=== PATIENT | female | born 2000 ===

== ENCOUNTER 2019-08-05 09:09 | Emergency (ER) | payer OTHER ==
[~2019-08-05] VITALS: Ht 154.9 cm; Wt 71.2 kg
[2019-08-05 11:17] LABS: BASOPHILS ABSOLUTE AUTO 0.11 K/mm3 (0.00-0.23); BASOPHILS PERCENT AUTO 1 % (0-2); EOSINOPHILS PERCENT AUTO 16 % (0-6); Hematocrit 49.4 % (33.0-51.0); Hemoglobin 16.6 g/dL (11.5-16.0); IMMATURE GRAN ABSOLUTE AUTO 0.09 K/mm3 (0.00-0.10); IMMATURE GRAN PERCENT AUTO 1 % (0-1); LYMPHOCYTES ABSOLUTE AUTO 2.33 K/mm3 (0.84-5.20); LYMPHOCYTES PERCENT AUTO 20 % (21-46); MONOCYTES ABSOLUTE AUTO 0.84 K/mm3 (0.16-1.47); MONOCYTES PERCENT AUTO 7 % (4-13); Mean Corpuscular HGB 28.9 pg (26.0-34.0); Mean Corpuscular HGB Conc 33.6 g/dL (31.5-36.5); Mean Corpuscular Volume 86 fL (80-100); Mean Platelet Volume 11.7 fL (9.1-12.4); NEUTROPHILS ABSOLUTE AUTO 6.62 K/mm3 (1.96-9.15); NEUTROPHILS PERCENT AUTO 56 % (41-73); Platelet Count 247 K/mm3 (150-400); RDW Coefficient Variation 16.5 % (11.7-14.2); RDW Standard Deviation 50.4 fL (35.1-46.3); Red Blood Cell Count 5.74 M/mm3 (3.80-5.20); White Blood Cell Count 11.89 K/mm3 (4.00-11.30)
[2019-08-05 11:35] LABS: Alanine Aminotransfer (ALT/SGP 19 U/L (12-78); Albumin, Blood 3.9 g/dL (3.4-5.0); Alk Phos 222 U/L (50-136); Anion Gap 16 mmol/L (6-16); Aspartate Aminotrans (AST/SGOT 22 U/L (12-37); Bilirubin, Total 0.5 mg/dL (0.1-1.0); Blood Urea Nitrogen 7 mg/dL (8-24); Bun/Creatinine Ratio 15.4 (12.0-20.0); CO2, Blood 11 mmol/L (21-32); Calcium, Blood 8.6 mg/dL (8.5-10.1); Chloride, Blood 106 mmol/L (98-108); Creatinine, Blood 0.46 mg/dL (0.40-1.00); Globulin, Blood 4.1 g/dL (2.2-4.0); Glomerular Filtration Rate >60 (60-); Glucose, Blood 422 mg/dL (70-99); Potassium, Blood 4.1 mmol/L (3.5-5.5); Sodium, Blood 133 mmol/L (136-145)
[2019-08-05 11:44] LABS: Source, Urine Clean Catch
[2019-08-05 12:05] LABS: Leukocyte Esterase, Urine 2+ (Neg); Nitrite, Urine Neg (Neg); Protein, Urine 1+ (Neg); Specific Gravity, Urine 1.025 (1.003-1.022)
[2019-08-05 12:06] LABS: Appearance, Urine Hazy (Clear); Bilirubin, Urine Neg (Neg); Blood, Urine 2+ (Neg); Color, Urine Pale Yellow (P-Yellow); Glucose Qualitative, Urine 4+ (Neg); Ketones, Urine 4+ (Neg); Urobilinogen, Urine NORM (Normal)
[2019-08-05 12:13] LABS: Bacteria Many /hpf; Squamous Epithelial Cells Mod /hpf (Few); White Blood Cells, Urine 50-100 /hpf (0-5); Yeast/Fungi Urine Few /hpf
[2019-08-05] MEDS ORDERED: Bactrim Ds Tab1 EACH PO (12:32)
== END 2019-08-05 12:44 | disposition home or self-care (01) ==
LOC: ER 09:09
PROVIDERS: Emergency Medicine
DX: J06.9 Acute upper respiratory infection, unspecified (principal); N39.0 Urinary tract infection, site not specified
CPT/HCPCS: 80053; 81001; 81025; 83690; 85025; 87081; 87086; 87147; 87430; 99283; A9270-GY

== ENCOUNTER 2019-08-20 20:32 | Inpatient (IN) | payer OTHER ==
[~2019-08-20] VITALS: Ht 154.9 cm; Wt 69.3 kg
[~2019-08-20 20:32] MED LIST: Bactrim Ds Tab1 EACH PO; IBUP800 PO; Monodox100 MG PO
[2019-08-20 21:06] LABS: BASOPHILS ABSOLUTE AUTO 0.28 K/mm3 (0.00-0.23); BASOPHILS PERCENT AUTO 1 % (0-2); EOSINOPHILS ABSOLUTE AUTO 0.03 K/mm3 (0.00-0.68); EOSINOPHILS PERCENT AUTO 0 % (0-6); Hematocrit 51.1 % (33.0-51.0); Hemoglobin 16.1 g/dL (11.5-16.0); IMMATURE GRAN ABSOLUTE AUTO 0.97 K/mm3 (0.00-0.10); IMMATURE GRAN PERCENT AUTO 4 % (0-1); LYMPHOCYTES ABSOLUTE AUTO 2.46 K/mm3 (0.84-5.20); LYMPHOCYTES PERCENT AUTO 11 % (21-46); MONOCYTES ABSOLUTE AUTO 1.51 K/mm3 (0.16-1.47); MONOCYTES PERCENT AUTO 7 % (4-13); Mean Corpuscular HGB 29.1 pg (26.0-34.0); Mean Corpuscular HGB Conc 31.5 g/dL (31.5-36.5); Mean Corpuscular Volume 92 fL (80-100); Mean Platelet Volume 11.4 fL (9.1-12.4); NEUTROPHILS ABSOLUTE AUTO 17.62 K/mm3 (1.96-9.15); NEUTROPHILS PERCENT AUTO 77 % (41-73); Platelet Count 448 K/mm3 (150-400); RDW Coefficient Variation 16.6 % (11.7-14.2); RDW Standard Deviation 55.4 fL (35.1-46.3); Red Blood Cell Count 5.54 M/mm3 (3.80-5.20); White Blood Cell Count 22.87 K/mm3 (4.00-11.30)
[2019-08-20 21:37] LABS: Alanine Aminotransfer (ALT/SGP 14 U/L (12-78); Albumin, Blood 3.4 g/dL (3.4-5.0); Albumin/Globulin Ratio 0.6 (0.8-1.8); Alk Phos 291 U/L (50-136); Anion Gap 22 mmol/L (6-16); Aspartate Aminotrans (AST/SGOT 4 U/L (12-37); Bilirubin, Total 0.3 mg/dL (0.1-1.0); Blood Urea Nitrogen 10 mg/dL (8-24); Bun/Creatinine Ratio 14.1 (12.0-20.0); CO2, Blood 6 mmol/L (21-32); Calcium, Blood 8.9 mg/dL (8.5-10.1); Chloride, Blood 103 mmol/L (98-108); Creatinine, Blood 0.71 mg/dL (0.40-1.00); Globulin, Blood 5.3 g/dL (2.2-4.0); Glomerular Filtration Rate >60 (60-); Glucose, Blood 508 mg/dL (70-99); Potassium, Blood 3.3 mmol/L (3.5-5.5); Sodium, Blood 131 mmol/L (136-145); Total Protein, Blood 8.7 g/dL (6.4-8.2)
[2019-08-20 23:08] LABS: Glucose, Blood 529 mg/dL (70-99)
[2019-08-20 23:09] LABS: Magnesium, Blood 2.5 mg/dL (1.6-2.4)
[2019-08-20 23:38] LABS: Beta-hydroxybutyrate 104.7 mg/dL (0.2-2.8)
[2019-08-20 23:40] LABS: Source, Urine Clean Catch
[2019-08-20 23:43] LABS: Bilirubin, Urine Neg (Neg); Blood, Urine 5+ (Neg); Glucose Qualitative, Urine 4+ (Neg); Ketones, Urine 4+ (Neg); Leukocyte Esterase, Urine 1+ (Neg); Nitrite, Urine Neg (Neg); Protein, Urine 2+ (Neg); Specific Gravity, Urine 1.025 (1.003-1.022); Urobilinogen, Urine NORM (Normal)
[2019-08-20 23:45] LABS: Appearance, Urine Hazy (Clear); Color, Urine Yellow (P-Yellow)
[2019-08-20 23:49] LABS: Bacteria Mod /hpf; Red Blood Cells, Urine TNTC /hpf (0-2); Squamous Epithelial Cells Few /hpf (Few)
[2019-08-21 00:15] LABS: PCO2 Venous 19.7 mmHg (38-42); PO2 Venous 115 mmHg (38-42); pH Blood Venous <6.80 (7.34-7.37)
[2019-08-21 00:16] LABS: Base Excess Venous -31.5 mmol/L; Bicarbonate Venous 5.7 mmol/L (24.0-30.0)
--- NOTE | 2019-08-21 01:30 | NUR ---
PATIENT ARRIVED TO ICU 15 VIA GURNEY FROM ED. PATIENT AWAKE, ANSWERING QUESTIONS APPROPRIATELY. FEELING GENERALIZED WEAKNESS, NO C/O NAUSEA AT THIS TIME. INSULIN DRIP INFUSING AT 5 UNITS/HR. 1/2NS WITH 20KCL AND BICARB STARTED AT 200/HR. RESP LABORED AT TIMES, NO C/O FEELING SOB, BIOX >95% ON RA. UP TO BSC VOIDING HAZY YELLOW URINE AND MENSTRUATING. LABIA SWOLLEN AND PAINFUL WITH CLEANING. DICK-PAD IN PLACE.
[2019-08-21 02:50] LABS: Anion Gap 22 mmol/L (6-16); Blood Urea Nitrogen 9 mg/dL (8-24); CO2, Blood 5 mmol/L (21-32); Calcium, Blood 7.8 mg/dL (8.5-10.1); Chloride, Blood 115 mmol/L (98-108); Glomerular Filtration Rate >60 (60-); Glucose, Blood 341 mg/dL (70-99); Potassium, Blood 2.8 mmol/L (3.5-5.5)
[2019-08-21 03:11] LABS: Sodium, Blood 142 mmol/L (136-145)
--- NOTE | 2019-08-21 03:30 | NUR ---
DOCTOR SOHAIL NOTIFIED OF REPEAT CHEM RESULTS AND IV FLUIDS CLARIFIED. PLAN TO REPEAT VBG AND CHEM AT 0500.
[2019-08-21 05:13] LABS: Base Excess Venous -25.5 mmol/L; Bicarbonate Venous 8.4 mmol/L (24.0-30.0); PCO2 Venous 22.6 mmHg (38-42); PO2 Venous 48.5 mmHg (38-42); pH Blood Venous 7.01 (7.34-7.37)
[2019-08-21 05:42] LABS: Blood Urea Nitrogen 9 mg/dL (8-24); Bun/Creatinine Ratio 15.3 (12.0-20.0); Calcium, Blood 7.8 mg/dL (8.5-10.1); Chloride, Blood 116 mmol/L (98-108); Creatinine, Blood 0.59 mg/dL (0.40-1.00); Glomerular Filtration Rate >60 (60-); Glucose, Blood 211 mg/dL (70-99); Potassium, Blood 2.7 mmol/L (3.5-5.5); Sodium, Blood 143 mmol/L (136-145)
[2019-08-21 05:44] LABS: Alanine Aminotransfer (ALT/SGP 14 U/L (12-78); Albumin, Blood 2.9 g/dL (3.4-5.0); Albumin/Globulin Ratio 0.7 (0.8-1.8); Alk Phos 226 U/L (50-136); Anion Gap 20 mmol/L (6-16); Aspartate Aminotrans (AST/SGOT 12 U/L (12-37); Bilirubin, Direct <0.1 mg/dL (0.0-0.3); Bilirubin, Indirect Unable to Calculate mg/dL (0.1-0.7); Bilirubin, Total 0.4 mg/dL (0.1-1.0); CO2, Blood 7 mmol/L (21-32); Globulin, Blood 4.2 g/dL (2.2-4.0); Total Protein, Blood 7.1 g/dL (6.4-8.2)
--- NOTE | 2019-08-21 06:14 | NUR ---
DOCTOR SOHAIL NOTIFIED OF AM LABS, POTASSIUM PO AND KPHOS ORDERED NO CHANGE TO IV FLUIDS AT THIS TIME, PLAN TO RECHECK LABS IN APROX 3 HRS
--- NOTE | 2019-08-21 06:43 | NUR ---
SUMMARY PATIENT SLEEPING WHEN UNDISTURBED, AWAKENS TO SLIGHT STIMULI. VERBALIZED THAT SHE IS STARTING TO FEEL BETTER. UP TO BS WITH MIN ASSISTANCE TO URINATE, CONTINUES TO HAVE LIGHT BLEEDING FROM MENSTRUAL CYCLE. INSULIN DRIP CONTINUES TITRATED FOR GLUCOSE AND DKA. CONTINUING TO MONITOR LABS CLOSELY REPLACING POTASSIUM AND PHOS THIS MORNING.
--- NOTE | 2019-08-21 07:15 | NUR ---
CALL PLACED TO DR MATHIS Notified provider of current blood sugar. Notified provider of current ordered IV fluids. Notified of most recent BMP. Orders given to change IV fluids and give IV KCl.
--- NOTE | 2019-08-21 07:15 | NUR ---
INITIAL ASSESSMENT Assumed care of pt at 0700. Bedside report recieved from Shayy CARRION. Pt A&O x 4. Answers questions. Follows commands. Verbalizes needs. States she is feeling tired. Pt on room air. Lungs clear t/o. SpO2 92% or greater. SR per monitor. BP stable. Bed in lowest position. Call light in reach. Pt denies need at this time.
--- NOTE | 2019-08-21 08:02 | NUR ---
DR MATHIS IN TO SEE PT Provider notifed that KCl cannot be given until KPhos is complete. Provider states to stop KPHos and run KCl first. Additionally, give 40 meq of KCl orally now. Plans to recheck BMP at 0930.
--- NOTE | 2019-08-21 08:04 | NUR ---
SPOKE TO GOVERNMENT TEACHER Provider Akanksha called unit for update on pt. States plan to visit pt around lunch time.
--- NOTE | 2019-08-21 09:30 | NUR ---
LABIAL ASSESSMENT Assessment done with Dr Mancera and Dr Gandhi. Pt gave verbal consent to assessment. Site is firm to the touch, with jelly nelson- sized lesion on left labia. Pain out of proportion. Pt provided with clean peripad at end of assessment. Offered clean wipes for anastasia area clean up, pt declined.
[2019-08-21 10:15] LABS: Blood Urea Nitrogen 8 mg/dL (8-24); Bun/Creatinine Ratio 12.9 (12.0-20.0); Calcium, Blood 7.5 mg/dL (8.5-10.1); Chloride, Blood 115 mmol/L (98-108); Creatinine, Blood 0.62 mg/dL (0.40-1.00); Glomerular Filtration Rate >60 (60-); Glucose, Blood 202 mg/dL (70-99); Potassium, Blood 3.2 mmol/L (3.5-5.5); Sodium, Blood 140 mmol/L (136-145)
[2019-08-21 10:17] LABS: Anion Gap 16 mmol/L (6-16); CO2, Blood 9 mmol/L (21-32)
--- NOTE | 2019-08-21 12:30 | NUR ---
DR GIL IN TO SEE PT Abscess swabbed. Provider states she would like antibiotics changed. Dr Gil connected to Dr Mancera. New orders received. Dr Gil recommends cleanse anastasia area with chlorhexidine BID and apply fresh warm compress every hour during the day and every 2-4 hours during the night. States she would like wound left open to air.
[2019-08-21 14:11] LABS: Anion Gap 15 mmol/L (6-16); Blood Urea Nitrogen 8 mg/dL (8-24); Bun/Creatinine Ratio 11.8 (12.0-20.0); CO2, Blood 10 mmol/L (21-32); Calcium, Blood 7.8 mg/dL (8.5-10.1); Chloride, Blood 117 mmol/L (98-108); Creatinine, Blood 0.68 mg/dL (0.40-1.00); Glomerular Filtration Rate >60 (60-); Glucose, Blood 211 mg/dL (70-99); Potassium, Blood 2.8 mmol/L (3.5-5.5); Sodium, Blood 142 mmol/L (136-145)
--- NOTE | 2019-08-21 15:00 | NUR ---
CALL PLACED TO DR RADFORD Notified provider of potassium levels. Provider to enter orders.
--- NOTE | 2019-08-21 16:00 | NUR ---
CALL PLACED TO DR RADFORD Notified provider that pt vomited immediately after receiving PO potassium. Provider to enter orders.
--- NOTE | 2019-08-21 17:00 | NUR ---
CALL PLACED TO DR MATHIS Notified provider of increased rate of insulin drip. Notified provider that pt is still receiving KPhos from this morning. Provider states to discontinue KPhos all togtheter and just give KCl.
--- NOTE | 2019-08-21 17:17 | NUR ---
SUMMARY At this time, pt on 8 units/hr insulin. Pt has been lethargic for majority of shift. OOB once to use bedside commode. Pt assisted with bath. Offered hair brush and oral care supplies, pt refused. SR per monitor. BP stable. Report given to Meron CARRION.
[2019-08-21 17:22] LABS: Anion Gap 11 mmol/L (6-16); Blood Urea Nitrogen 7 mg/dL (8-24); Bun/Creatinine Ratio 11.3 (12.0-20.0); CO2, Blood 11 mmol/L (21-32); Calcium, Blood 7.6 mg/dL (8.5-10.1); Chloride, Blood 114 mmol/L (98-108); Creatinine, Blood 0.62 mg/dL (0.40-1.00); Glomerular Filtration Rate >60 (60-); Glucose, Blood 224 mg/dL (70-99); Potassium, Blood 2.9 mmol/L (3.5-5.5); Sodium, Blood 136 mmol/L (136-145)
--- NOTE | 2019-08-21 18:44 | NUR ---
SHIFT SUMMARY: REPORT RECIEVED FROM SHEYLA POTTER. PT RESTING IN BED, VERY LETHARGIC AND NOT VERY RESPONSIVE TO STAFF. PULLS AWAY WITH NOXIOUS STIMULI. FLUID BOLUS ADMINISTERING PER DR MATHIS. NO FURTHER NEEDS AT THIS TIME.
--- NOTE | 2019-08-21 19:00 | NUR ---
ASSUMED CARE NOTE: ASSUMED CARE OF PT AT 1900, RECEVIED REPORT FROM MINGO CARRION. PT IS ALERT, ORIENTED TO SELF, AND IS ABLE TO FOLLOW DIRECTIONS. PT IS UNABLE TO REMEMBER WHY SHE IS HERE IN THE HOSPITAL. PT IS ON RA WITH SPO2 AT 100% PT IS IN SR WITH HR IN THE 90'S. HR RISES TO 116-120 WITH ACTIVITY. PT DENIES ANY SOB/PAIN/NAUSEA AT THIS TIME. ABDOMEN SOFT AND NON-TENDER, ACTIVE BT HEARD IN ALL QUADRANTS. PT HAD A INCONTINENT EPISIODE OF URINE. PT GIVEN A PARTIAL BEDBATH AND LINENS WERE CHANGED. PT UP TO THE BSC WITH SBA, PT STEADY ON FEET. INSLUIN RUNNING @ 8U/HR. BED AT LOWEST LEVEL, BED ALARM ON, CALL LIGHT WITHIN REACH.
--- NOTE | 2019-08-21 19:41 | NUR ---
WOUND CARE: CALLED PHARMACY REGARDING CHLORHEXIDINE WASH THAT IS TO BE USED ON PT'S DICK AREA. WASH SENT FROM PHARMACY STATES TO NOT USE ON GENITAL AREA, VERFIED WITH PHARMACY WILL SEARCH FOR NEW WASH. MEANWHILE , DICK AREA WAS CLEANED WITH SOAP AND WATER, AND WARM COMPRESS APPLIED.
--- NOTE | 2019-08-21 20:47 | NUR ---
UPDATE: PT IS MORE ORIENTED, ABLE TO RECALL RECENT AND REMOTE EVENTS. ABLE TO ANSWER QUESTIONS APPROPRIATLY.
[2019-08-21 21:11] LABS: Anion Gap 12 mmol/L (6-16); Blood Urea Nitrogen 5 mg/dL (8-24); Bun/Creatinine Ratio 7.6 (12.0-20.0); CO2, Blood 14 mmol/L (21-32); Calcium, Blood 7.7 mg/dL (8.5-10.1); Chloride, Blood 115 mmol/L (98-108); Creatinine, Blood 0.66 mg/dL (0.40-1.00); Glomerular Filtration Rate >60 (60-); Glucose, Blood 186 mg/dL (70-99); Potassium, Blood 2.5 mmol/L (3.5-5.5); Sodium, Blood 141 mmol/L (136-145)
--- NOTE | 2019-08-21 23:46 | NUR ---
UPDATE: CALLED AND ORDERED 20MEQ IV POTASSIUM AND 40MEQ KCL ONCE ORALLY NOW. WILL CONTINUE TO MONITOR PT.
[2019-08-22 01:31] LABS: Anion Gap 9 mmol/L (6-16); Blood Urea Nitrogen 5 mg/dL (8-24); Bun/Creatinine Ratio 8.1 (12.0-20.0); CO2, Blood 16 mmol/L (21-32); Chloride, Blood 115 mmol/L (98-108); Creatinine, Blood 0.62 mg/dL (0.40-1.00); Glomerular Filtration Rate >60 (60-); Glucose, Blood 105 mg/dL (70-99); Potassium, Blood 2.5 mmol/L (3.5-5.5); Sodium, Blood 140 mmol/L (136-145)
--- NOTE | 2019-08-22 05:23 | NUR ---
SHIFT SUMMARY: PT'S POTASSIUM CONTINUES TO BE LOW, PHYSICAN AWARE. PT IS CURRENTLY RECEVING POTASSIUM REPLACEMENT. PT IS MORE AWAKE THIS SHIFT, STATES SHE IS FEELS BETTER, HOWEVER C/O WEAKNESS. PT CONTINUES TO BE IN SR WITH HR IN THE 80'S AND ON RA. PT HAS DENIED PAIN/SOB/NAUSEA THIS SHIFT. PT IS MENSTRUATING, THEREFORE REQUIRES FREQUENT DICK CARE. DRY FLOW PADS ARE BEING USED, INSTEAD OF ATTENDS TO PREVENT FURTHER IRRITATION TO LABIA ABCESS. WARM COMPRESSESS ARE BEING USED TO DICK AREA Q2H. PT ATTEMPTED TO DECLINE DICK CARE, HOWEVER, AGREED WHEN PATIENT EDUCATION WAS GIVEN. PT PROVIDED WITH ORAL CARE. WILL GIVE IN REPORT THAT IN-HOUSE CHLORHEXIDINE FOR GENITAL AREA COULD NOT BE FOUND. PT HAS BEEN USING BEDSIDE COMMODE, HOWEVER CAN BE INCONTINENT AT TIMES. INSULIN CURRENTLY RUNNING AT 8U/HR. WILL CONTINUE TO MONITOR PT T/O SHIFT.
[2019-08-22 05:46] LABS: BASOPHILS ABSOLUTE AUTO 0.09 K/mm3 (0.00-0.23); BASOPHILS PERCENT AUTO 1 % (0-2); EOSINOPHILS ABSOLUTE AUTO 0.23 K/mm3 (0.00-0.68); EOSINOPHILS PERCENT AUTO 2 % (0-6); IMMATURE GRAN ABSOLUTE AUTO 0.14 K/mm3 (0.00-0.10); IMMATURE GRAN PERCENT AUTO 1 % (0-1); LYMPHOCYTES ABSOLUTE AUTO 1.63 K/mm3 (0.84-5.20); LYMPHOCYTES PERCENT AUTO 17 % (21-46); MONOCYTES ABSOLUTE AUTO 1.13 K/mm3 (0.16-1.47); MONOCYTES PERCENT AUTO 12 % (4-13); Mean Corpuscular HGB 28.9 pg (26.0-34.0); Mean Corpuscular HGB Conc 34.2 g/dL (31.5-36.5); Mean Platelet Volume 10.9 fL (9.1-12.4); NEUTROPHILS ABSOLUTE AUTO 6.58 K/mm3 (1.96-9.15); NEUTROPHILS PERCENT AUTO 67 % (41-73); Platelet Count 237 K/mm3 (150-400); RDW Coefficient Variation 16.8 % (11.7-14.2); RDW Standard Deviation 51.2 fL (35.1-46.3)
[2019-08-22 05:47] LABS: Mean Corpuscular Volume 84 fL (80-100)
[2019-08-22 06:03] LABS: Anion Gap 9 mmol/L (6-16); Blood Urea Nitrogen 4 mg/dL (8-24); CO2, Blood 17 mmol/L (21-32); Calcium, Blood 8.4 mg/dL (8.5-10.1); Chloride, Blood 117 mmol/L (98-108); Creatinine, Blood 0.67 mg/dL (0.40-1.00); Glomerular Filtration Rate >60 (60-); Glucose, Blood 148 mg/dL (70-99); Potassium, Blood 2.8 mmol/L (3.5-5.5); Sodium, Blood 143 mmol/L (136-145)
--- NOTE | 2019-08-22 06:34 | NUR ---
UPDATE: CALLED REGARDING 2.8 POTASSIUM, ORDERS TO GIVE 40MEQ PO GIVEN .
--- NOTE | 2019-08-22 08:30 | NUR ---
ASSESSMENT- PT AWAKENS TO NAME, ALERT, ORIENTED, COOPERATIVE. DENIES PAIN AT REST BUT VERY PAINFUL WITH ANY MOVEMENT. ASSISTED UP TO BEDSIDE COMMODE. VULVA AREA SWOLLEN, RED, VERY PAINFUL WITH ANY MOVEMENT OR TOUCH, WILL ONLY TOLERATE LIGHT TOUCH TO CLEAN. STATES DOES FEEL BETTER THAN YESTERDAY. ON MENSES. DR. RADFORD HERE-UPDATED, ASSESSED PT. LUNGS CLEAR, NO SOB. VSS. AFEBRILE. INSULIN GTT CONTINUES AT 6 UNITS/HR, BLOOD SUGAR STABLE. IV D5 1/2 NS WITH 20 MEQ KCL AT 200 CC/HR. PIV X 3 INTACT. POTASSIUM REPLACEMENT COMPLETED VOIDING CHRIS URINE.
--- NOTE | 2019-08-22 09:05 | NUR ---
PHYSICIAN DR. CLEVELAND CALLED-UPDATED WITH VS, LABS, PLAN OF CARE. PT RX WTIH PAIN MEDICATION. POTASSIUM REPLACEMENT STARTED
[2019-08-22 09:49] LABS: Alanine Aminotransfer (ALT/SGP 13 U/L (12-78); Albumin, Blood 2.4 g/dL (3.4-5.0); Albumin/Globulin Ratio 0.7 (0.8-1.8); Alk Phos 169 U/L (50-136); Anion Gap 8 mmol/L (6-16); Aspartate Aminotrans (AST/SGOT 12 U/L (12-37); Bilirubin, Total 0.2 mg/dL (0.1-1.0); Blood Urea Nitrogen 3 mg/dL (8-24); CO2, Blood 17 mmol/L (21-32); Calcium, Blood 8.3 mg/dL (8.5-10.1); Chloride, Blood 119 mmol/L (98-108); Globulin, Blood 3.5 g/dL (2.2-4.0); Glomerular Filtration Rate >60 (60-); Glucose, Blood 177 mg/dL (70-99); Sodium, Blood 144 mmol/L (136-145); Total Protein, Blood 5.9 g/dL (6.4-8.2)
--- NOTE | 2019-08-22 10:53 | NUR ---
PT ASSISTED UP TO TOILET. CHLORHEXIDINE WASH VIA DICK BOTTLE, WARM RINSE TO DICK AREA. TOLERATED BETTER THAN THIS AM. RX WITH TYLENOL. WARM COMPRESS TO DICK AREA.
--- NOTE | 2019-08-22 11:08 | NUR ---
RN FROM [facility] CALLED-OKAYED FROM PT TO TALK WITH HER. UPDATE GIVEN. PLANS FOR PT TO MEDICALLY SEPARATE FROM [facility] UNTIL SHE'S PHYSICALLY ABLE TO CONTINUE SCHOOL.
--- NOTE | 2019-08-22 13:05 | NUR ---
BLOOD SUGAR 155, INSULIN GTT TO 4 UNITS/HR. SLEEPING WHEN UNDISTURBED, NO APPETITE. VSS
[2019-08-22 14:06] LABS: Anion Gap 7 mmol/L (6-16); Blood Urea Nitrogen 3 mg/dL (8-24); Bun/Creatinine Ratio 4.6 (12.0-20.0); CO2, Blood 18 mmol/L (21-32); Calcium, Blood 8.2 mg/dL (8.5-10.1); Chloride, Blood 119 mmol/L (98-108); Creatinine, Blood 0.65 mg/dL (0.40-1.00); Glomerular Filtration Rate >60 (60-); Glucose, Blood 152 mg/dL (70-99); Potassium, Blood 3.1 mmol/L (3.5-5.5); Sodium, Blood 144 mmol/L (136-145)
--- NOTE | 2019-08-22 15:46 | NUR ---
PT C/O INCREASED DISCOMFORT, RX GIVEN WITH IMPROVEMENT. NO N/V. UPDATE TO DR. MATHIS REGARDING LABS, PLAN TO TRY SNACK BUT NOW WITH MOVEMENT PT NAUSEATED. LABIAL ABSCESS APPEAR TO HAVE SEROUS DRAINAGE ON PAD. STATES LESS PRESSURE THAN EARLIER. BLOOD SUGAR STABLE, INSULIN GTT AT 4 UNITS/HR
--- NOTE | 2019-08-22 16:58 | NUR ---
DR. MATHIS HERE-UPDATED. ORDERS FOR NEXT BMP AT 1930-CALL WITH RESULTS. POTASSIUM INFUSING. UNABLE TO TAKE PO AT THIS TIME. STATES BETTER AFTER PAIN RX, REFUSED NEED FOR ANOTHER RX AT THIS TIME.
--- NOTE | 2019-08-22 18:36 | NUR ---
DR. CAMPBELL HERE-ASSESSED PT. PLANS FOR ULTRASOUND IN A.M. CALL IF ANY PROBLEMS. PT ASSISTED UP TO BATHROOM AGAIN. PAINFUL WITH MOVEMENT-REFUSED PAIN RX FOR NOW. USING WARM COMPRESS. CONTINUE INSULIN GTT-LABS DUE AT 1930-CALL TO DR. MATHIS. PIV X 2 INTACT. D5 1/2 NS AT 200 CC/HR CONTINUES.
--- NOTE | 2019-08-22 18:50 | NUR ---
PT STATES HAS NOT HAD BM FOR OVER A WEEK. SMALL SMEAR OF STOOL, STATES VERY PAINFUL. PERICARE DONE. RX FOR PAIN
--- NOTE | 2019-08-22 19:09 | NUR ---
DENIES PAIN NOW BUT GRIMACING, LEGS DRAWN UP. STATES NAUSEATED. REPORT TO SYED CARRION
--- NOTE | 2019-08-22 19:30 | NUR ---
ASSUMED CARE NOTE: ASSUMED CARE OF PT AT 1930, RECEVIED REPORT FROM LUI CARRION. PT IS ALERT AND ORIENTEDX3, PT FOLLOWING DIRECTIONS AND ABLE TO CARRY ON A CONVERSTATION. PT ON RA WITH HR IN THE 60'S. PT ON RA WITH SPO2 AT 100% PT DENIES ANY SOB/PAIN AT THIS TIME. BT HEARD IN ALL FOUR QUADRANTS. PT C/O NAUSEA, UNABLE TO TOLERATE ORAL INTAKE. PT'S VULVA SWOLLEN AND RED. DICK CARE GIVEN. PT DENIES PAIN AT THIS TIME TO DICK AREA. PT USES BSC WITH SBA, STEADY GAIT. PT INSULIN DRIP RUNNING AT 4U/HR. CHARGE NURSE WILL ATTEMPT TO OBTAIN POWERGLIDE. WILL CONTINUE TO MONITOR PT T/O SHIFT. CALL LIGHT WITHIN REACH.
[2019-08-22 19:56] LABS: Anion Gap 10 mmol/L (6-16); Blood Urea Nitrogen 3 mg/dL (8-24); CO2, Blood 18 mmol/L (21-32); Calcium, Blood 8.4 mg/dL (8.5-10.1); Chloride, Blood 117 mmol/L (98-108); Creatinine, Blood 0.61 mg/dL (0.40-1.00); Glomerular Filtration Rate >60 (60-); Glucose, Blood 183 mg/dL (70-99); Sodium, Blood 145 mmol/L (136-145)
--- NOTE | 2019-08-22 20:53 | NUR ---
UPDATE: CALLED REGARDING 1930 LABS. ORDERS FOR 40MEQ IV OF K+, AND 40MEQ OF K-PHOS PO GIVEN. ORDERS TO START BOWEL CARE GIVEN.
--- NOTE | 2019-08-22 21:37 | NUR ---
UPDATE: UPDATED PT'S MOTHER COREY, ON PT'S CONDITION. PT REFUSED TO TAKE COLACE, STATING SHE WOULD CONSIDER IT IN THE MORNING. WILL CONTINUE TO MONITOR PT T/O SHIFT.
[2019-08-23 02:10] LABS: Anion Gap 5 mmol/L (6-16); Blood Urea Nitrogen 2 mg/dL (8-24); Bun/Creatinine Ratio 3.4 (12.0-20.0); CO2, Blood 21 mmol/L (21-32); Calcium, Blood 8.1 mg/dL (8.5-10.1); Chloride, Blood 119 mmol/L (98-108); Creatinine, Blood 0.59 mg/dL (0.40-1.00); Glomerular Filtration Rate >60 (60-); Glucose, Blood 164 mg/dL (70-99); Potassium, Blood 2.9 mmol/L (3.5-5.5); Sodium, Blood 145 mmol/L (136-145)
--- NOTE | 2019-08-23 05:27 | NUR ---
SHIFT SUMMARY: PT CONTINUES TO A/OX3, ON RA WITH SPO2 @ 100% PT IN SR WITH HR IN THE 60'S AT REST, HR IN THE 120'S WITH AMBULATION. PT POTASSIUM HAS NOT IMPROVED, PHYSICAN AWARE, CURRENTLY DELIVERING POTASSIUM REPLACEMENT. PT STATES SHE IS UNABLE TO TOLERATE PO POTASSIUM. PT BECAME NAUSEATED AND VOMITED AFTER PO POTASSIUM GIVEN, ZOFRAN THEN ADMINISTERED. PT REQUIRED PAIN MEDS PER EMAR FOR VULVA PAIN. POWERGLIDE INSERTED THIS SHIFT BY ASTON CARRION. PT REMAINS ON INSULIN DRIP, CURRENTLY RUNNING AT 3U/HR, GOAL TO MAINTATIN BLOOD SUGAR BETWEEN 150-200. BP HAS BEEN STABLE. PT IS AFEBRILE. PT HAS BEEN GETTING UP Q1H TO VOID IN BSC, SBA REQUIRED. WILL CONTINUE TO MONITOR PT UNTIL REPORT IS GIVEN TO ONCOMING SHIFT.
[2019-08-23 05:48] LABS: Anion Gap 8 mmol/L (6-16); Blood Urea Nitrogen 2 mg/dL (8-24); Bun/Creatinine Ratio 3.5 (12.0-20.0); CO2, Blood 20 mmol/L (21-32); Calcium, Blood 8.1 mg/dL (8.5-10.1); Chloride, Blood 116 mmol/L (98-108); Creatinine, Blood 0.57 mg/dL (0.40-1.00); Glomerular Filtration Rate >60 (60-); Glucose, Blood 191 mg/dL (70-99); Potassium, Blood 3.1 mmol/L (3.5-5.5); Sodium, Blood 144 mmol/L (136-145)
--- NOTE | 2019-08-23 07:48 | NUR ---
AM NOTE... ASSUMED CARE OF PT APROX 0700, PT IS A&Ox4, SLOW TO RESPOND WITH A FLAT AFFECT. PT'S VS STABLE AT THIS TIME, PT IS ON AN INSULIN GTT AT 4UNITS/HR KEEPING HER CBG BETWEEN 150-200. PT CONTINUES TO HAVE SMALL TO MODERATE AMOUNT OF BLOOD IN HER DICK AREA, IT IS UNKNOWN AT THIS TIME IF IT IS JUST MENSTRAL BLOOD OR FROM THE LABIAL ABCESSES. PT IS VERY SLOW TO MOVE STATING PAIN TO HER LEGS AND PERIAREA WITH MOVEMENT. PT HAS BEEN GETTING UP TO THE BSC TO VOID. CALL LIGHT IN REACH WILL CONTINUE TO MONITOR.
[2019-08-23 09:20] LABS: Anion Gap 6 mmol/L (6-16); Blood Urea Nitrogen 2 mg/dL (8-24); Bun/Creatinine Ratio 3.1 (12.0-20.0); CO2, Blood 22 mmol/L (21-32); Calcium, Blood 8.2 mg/dL (8.5-10.1); Chloride, Blood 117 mmol/L (98-108); Creatinine, Blood 0.64 mg/dL (0.40-1.00); Glomerular Filtration Rate >60 (60-); Glucose, Blood 176 mg/dL (70-99); Potassium, Blood 3.3 mmol/L (3.5-5.5); Sodium, Blood 145 mmol/L (136-145)
[2019-08-23 11:29] LABS: BASOPHILS ABSOLUTE AUTO 0.11 K/mm3 (0.00-0.23); BASOPHILS PERCENT AUTO 2 % (0-2); EOSINOPHILS ABSOLUTE AUTO 0.48 K/mm3 (0.00-0.68); EOSINOPHILS PERCENT AUTO 6 % (0-6); Hematocrit 35.7 % (33.0-51.0); Hemoglobin 12.2 g/dL (11.5-16.0); IMMATURE GRAN ABSOLUTE AUTO 0.09 K/mm3 (0.00-0.10); IMMATURE GRAN PERCENT AUTO 1 % (0-1); LYMPHOCYTES ABSOLUTE AUTO 2.16 K/mm3 (0.84-5.20); LYMPHOCYTES PERCENT AUTO 29 % (21-46); MONOCYTES PERCENT AUTO 12 % (4-13); Mean Corpuscular HGB 29.1 pg (26.0-34.0); Mean Corpuscular HGB Conc 34.2 g/dL (31.5-36.5); Mean Corpuscular Volume 85 fL (80-100); Mean Platelet Volume 10.9 fL (9.1-12.4); NEUTROPHILS ABSOLUTE AUTO 3.79 K/mm3 (1.96-9.15); NEUTROPHILS PERCENT AUTO 50 % (41-73); Platelet Count 235 K/mm3 (150-400); RDW Coefficient Variation 17.4 % (11.7-14.2); RDW Standard Deviation 54.3 fL (35.1-46.3); Red Blood Cell Count 4.19 M/mm3 (3.80-5.20); White Blood Cell Count 7.53 K/mm3 (4.00-11.30)
[2019-08-23 11:36] LABS: Anion Gap 6 mmol/L (6-16); Blood Urea Nitrogen 2 mg/dL (8-24); Bun/Creatinine Ratio 3.1 (12.0-20.0); CO2, Blood 23 mmol/L (21-32); Calcium, Blood 7.8 mg/dL (8.5-10.1); Chloride, Blood 117 mmol/L (98-108); Creatinine, Blood 0.65 mg/dL (0.40-1.00); Glomerular Filtration Rate >60 (60-); Glucose, Blood 193 mg/dL (70-99); Potassium, Blood 3.1 mmol/L (3.5-5.5); Sodium, Blood 146 mmol/L (136-145)
[2019-08-23 11:41] LABS: Vancomycin, Trough 12.1 ug/mL (5.0-10.0)
[2019-08-23 14:08] LABS: Anion Gap 5 mmol/L (6-16); Blood Urea Nitrogen 1 mg/dL (8-24); Bun/Creatinine Ratio 1.6 (12.0-20.0); CO2, Blood 24 mmol/L (21-32); Calcium, Blood 7.9 mg/dL (8.5-10.1); Chloride, Blood 118 mmol/L (98-108); Creatinine, Blood 0.64 mg/dL (0.40-1.00); Glomerular Filtration Rate >60 (60-); Glucose, Blood 123 mg/dL (70-99); Sodium, Blood 147 mmol/L (136-145)
[2019-08-23 16:50] LABS: Anion Gap 8 mmol/L (6-16); Blood Urea Nitrogen 1 mg/dL (8-24); Bun/Creatinine Ratio 1.8 (12.0-20.0); CO2, Blood 20 mmol/L (21-32); Calcium, Blood 7.9 mg/dL (8.5-10.1); Chloride, Blood 115 mmol/L (98-108); Creatinine, Blood 0.55 mg/dL (0.40-1.00); Glomerular Filtration Rate >60 (60-); Glucose, Blood 177 mg/dL (70-99); Potassium, Blood 3.9 mmol/L (3.5-5.5); Sodium, Blood 143 mmol/L (136-145)
--- NOTE | 2019-08-23 18:34 | NUR ---
SHIFT SUMMARY... PT'S VS HAVE BEEN STABLE T/O SHIFT. INSULIN GTT WAS STOPPED AT 1600 FOR CBG OF 53, PT WAS GIVEN CHEESE AND ORANGE JUICE, RECHECK AT 1730 WAS 210, PROVIDER AWARE, PER PROVIDER VERBAL ORDERS PT WAS PUT BACK ON INSULIN GTT AT 2UNITS/HR, SUBQ WAS GIVEN PER LOW SS. PER PROVIDER PT IS TO HAVE CBG CHECKED Q2 HRS UNTIL CBG STABLE BETWEEN 150-200 THEN Q4 HR CBG CHECKS. PT WAS GIVEN BEDBATH THIS AFTERNOON, DURING HAIR CARE PT STARTED TO C/O OF PAIN, ON ASSESSMENT IT WAS NOTED THAT PT HAD 2 ABCESSES ON HER SCALP, ONE ON THE TOP AND ONE ON THE BACK, SOME OF THE HAIR HAD TO BE CUT AWAY FROM THE ABCESS DUE TO SEVERE PURULENT CRUSTING. THIS AREA WAS CLEANED, CULTURES WERE TAKEN AND SENT TO THE LAB. PT HAS BEEN GETTING UP TO THE BSC TO VOID, PT HAS HAD 2 LARGE BMS THIS SHIFT. PT WAS MEDICATED FOR PAIN PER EMAR WITH GOOD RESULTS. CALL LIGHT IN REACH WILL CONTINUE TO MONITOR UNTIL REPORT IS GIVEN TO ONCOMING RN.
--- NOTE | 2019-08-23 22:00 | NUR ---
ASSUMPTION OF CARE ASSUMED CARE OF PT @ 1900, PT ALERT AND ORIENTED x4, O2 SATURATIONS>90% ON RA, MONITOR SHOWS SINUS RHYTHM WITH HR 90'S, BP STABLE, PT AFEBRILE. INSULIN GTT INFUSING, LANTUS ADMINISTERED ON DAYSHI, PLAN TO TITRATE INSULIN GTT OFF. D5 1/2NS W/40meq INFUSING @ 200ml/hr (4meq/hr), 20meq KCL INF @ 30ml/hr (6meq/hr). PT SBA TO BEDSIDE TOILET, REPORTS MILD CONSTIPATION, GAIT MILDLY WEAK/IMPAIRED R/T DICK AREA PAIN. PT WITH BILAT LABIA ABSCESSES, OPEN TO AIR WITH PURULENT/BLOODY DRAINAGE, CHLORHEXIDINE RINSE PROVIDED WITH EACH VOID, PT PERFORMS DICK CARE INDEPENDENTLY. WOUNDS TO SCALP WITH SCANT BLOODY DRAINAGE. CALL LIGHT WITHIN REACH, PT USING APPROPRIATELY.
[2019-08-23 22:27] LABS: Anion Gap 9 mmol/L (6-16); Blood Urea Nitrogen 2 mg/dL (8-24); Bun/Creatinine Ratio 3.4 (12.0-20.0); CO2, Blood 20 mmol/L (21-32); Calcium, Blood 8.1 mg/dL (8.5-10.1); Chloride, Blood 113 mmol/L (98-108); Glomerular Filtration Rate >60 (60-); Glucose, Blood 224 mg/dL (70-99); Potassium, Blood 3.6 mmol/L (3.5-5.5); Sodium, Blood 142 mmol/L (136-145)
[2019-08-24 04:03] LABS: Anion Gap 4 mmol/L (6-16); Blood Urea Nitrogen 1 mg/dL (8-24); Bun/Creatinine Ratio 1.7 (12.0-20.0); CO2, Blood 26 mmol/L (21-32); Calcium, Blood 7.7 mg/dL (8.5-10.1); Chloride, Blood 114 mmol/L (98-108); Creatinine, Blood 0.59 mg/dL (0.40-1.00); Glomerular Filtration Rate >60 (60-); Glucose, Blood 246 mg/dL (70-99); Potassium, Blood 3.5 mmol/L (3.5-5.5); Sodium, Blood 144 mmol/L (136-145)
--- NOTE | 2019-08-24 06:29 | NUR ---
SHIFT SUMMARY PT AWAKE FOR MOST OF NIGHT, ALERT AND ORIENTED x4, O2 SATURATIONS>90% ON RA, MONITOR SHOWS A POSSIBLE JUNCTIONAL RHYTHM (MS INTERVAL<0.12) HR 70'S-80'S, BP STABLE. LABIAL ABSCESSES WITH INCREASED DRAINAGE, OPEN TO AIR, PT PERFORMS PERICARE WITH CHLORHEXIDINE WASH WITH EACH VOID, PT WITH FREQUENT VOIDS THIS SHIFT. INSULIN GTT TURNED OFF THIS SHIFT, GLUCOSE REMAINS ELEVATED IN THE 200'S. PT WITH SOME NAUSEA AND APPROX 50ml GREEN/BILE EMESIS THIS AM, REGLAN PROVIDED WITH GOOD EFFECT.
--- NOTE | 2019-08-24 07:48 | NUR ---
AM NOTE... ASSUMED CARE OF PT APROX 0700. PT IS A&Ox4 AND SBA TO THE BS. PT HAS BEEN OFF THE INSULIN GTT SINCE 2129. AM CBG WAS 311 D5 AND 1/2NS WAS STOPPED PER DR. MATHIS. L/S CEARL T/O ON RA, BT PRESENT AND HYPOACTIVE, ABD IS SOFT AND NONTENDER TO PALP. LABIA STILL SWOLLEN, DRAINING AND PAINFUL TO TOUCH, PT C/O OF INCREASED PAIN AT THIS TIME. PT USING DICK BOTTLE WITH WARM WATER TO CLEAN THE AREA AFTER VOIDING. THIS RN HAS PROVIDED EXTENSIVE EDUCATION ON DIABETES, INSULIN AND TAUGHT THE PT HOW TO INJECT THE INSULIN USING THE INSULIN PEN, PT WAS VERY SUCCESSFUL WITH INJECTING THE SUBQ INSULIN. DURING THIS TIME THE PT HAD GOOD EYE CONTACT, WAS ASKING QUESTIONS AND VOLUNTEERING PERSONAL INFORMATION ABOUT HERSELF, HER MOTHER AND HER PAST, DURING THIS CONVERSATION DR. MATHIS WALKED INTO THE ROOM, HE WAS VERY PLEASENT AND POLITE BUT THE PT BECAME VERY WITHDRAWN, HAD NO EYE CONTACT WITH DR. MATHIS AND HAD A FLAT AFFECT. WHEN THE DOCTOR LEFT THE ROOM SHE WARMED BACK UP AND STARTED ASKING QUESITONS ABOUT WHAT A NORMAL BLOOD SUGAR IS, WHAT A NORMAL HEART RATE SHOULD BE AND HOW TO KNOW WHEN TO TEST HER BLOOD SUGAR AT HOME. CALL LIGHT IN REACH WILL CONTINUE TO MONITOR.
--- NOTE | 2019-08-24 10:15 | NUR ---
PT ATE SEVERAL BITES OF REGULAR/ADA BREAKFAST TRAY AND DRANK 240 CC. SHORTLY THEREAFTER, SHE HAD A TOTAL OF [address] MATHIS MADE AWARE. PT MED WITH REGLAN 5 MG IVP X 1.
--- NOTE | 2019-08-24 14:49 | NUR ---
TRANSFER PT ARRIVED TO THE MEDICAL FLOOR FROM THE ICU A/OX3, PLEASANT AND COOPERATIVE, VIA WHEELCHAIR, THE PT WAS ORIENTED TO THE ROOM LAYOUT AND CALL SYSTEM, CALL LIGHT IN REACH, I AGREE WITH LORE'S AM ICU RNS AM ASSESSMENT
--- NOTE | 2019-08-24 17:13 | NUR ---
PT IS A/OX3, PLEASANT AND COOPERATIVE, THE PT IS UP WITH MINIMAL ASSIST, THE PT WAS A TRANSFER FROM THE PCU TODAY, PT DENIED NAUSEA AT THE TIME OF ARRIVAL TO THE MEDICAL FLOOR, THE PT IS UP TO THE BATHROOM AND CLEANSES HER ILEANA AREA WITH WARM WATER AND THE MEDICATED SOAP SHE WAS INSTRUCTED, PT DENIES ANY PAIN AT THIS TIME, THE PT APPEARS TO BE BREATHING EASILY AT REST, CALL LIGHT IN REACH, WILL CONTINUE TO MONITOR AND ASSESS FOR CHANGES
[2019-08-25 03:31] LABS: BASOPHILS ABSOLUTE AUTO 0.13 K/mm3 (0.00-0.23); BASOPHILS PERCENT AUTO 2 % (0-2); EOSINOPHILS ABSOLUTE AUTO 0.46 K/mm3 (0.00-0.68); EOSINOPHILS PERCENT AUTO 6 % (0-6); Hematocrit 35.8 % (33.0-51.0); Hemoglobin 12.1 g/dL (11.5-16.0); IMMATURE GRAN ABSOLUTE AUTO 0.13 K/mm3 (0.00-0.10); IMMATURE GRAN PERCENT AUTO 2 % (0-1); LYMPHOCYTES ABSOLUTE AUTO 2.61 K/mm3 (0.84-5.20); LYMPHOCYTES PERCENT AUTO 34 % (21-46); MONOCYTES ABSOLUTE AUTO 0.91 K/mm3 (0.16-1.47); MONOCYTES PERCENT AUTO 12 % (4-13); Mean Corpuscular HGB 29.2 pg (26.0-34.0); Mean Corpuscular HGB Conc 33.8 g/dL (31.5-36.5); Mean Corpuscular Volume 87 fL (80-100); Mean Platelet Volume 10.4 fL (9.1-12.4); NEUTROPHILS ABSOLUTE AUTO 3.35 K/mm3 (1.96-9.15); NEUTROPHILS PERCENT AUTO 44 % (41-73); Platelet Count 241 K/mm3 (150-400); RDW Coefficient Variation 17.9 % (11.7-14.2); RDW Standard Deviation 56.5 fL (35.1-46.3); Red Blood Cell Count 4.14 M/mm3 (3.80-5.20); White Blood Cell Count 7.59 K/mm3 (4.00-11.30)
[2019-08-25 03:45] LABS: Anion Gap 5 mmol/L (6-16); Blood Urea Nitrogen 3 mg/dL (8-24); Bun/Creatinine Ratio 4.8 (12.0-20.0); CO2, Blood 32 mmol/L (21-32); Calcium, Blood 7.9 mg/dL (8.5-10.1); Chloride, Blood 106 mmol/L (98-108); Creatinine, Blood 0.63 mg/dL (0.40-1.00); Glomerular Filtration Rate >60 (60-); Glucose, Blood 202 mg/dL (70-99); Sodium, Blood 143 mmol/L (136-145)
--- NOTE | 2019-08-25 05:13 | NUR ---
SHIFT SUMMARY DR. CAMPBELL OBGYN IN TO SEE PT THIS SHIFT AROUND 2129. SHE DISCUSSED POSSIBLE I&D PROCEDURE WITH PT TONIGHT D/T ABCESS OF LABIA. SHE ALSO DISCUSSED WITH PT THE IMPORTANCE OF LEAVING THE AREA OPEN TO AIR, AND USING WARM COMPRESSES OFTEN TO HELP DRAIN FLUID. PT EXPRESSED UNDERSTANDING. HOWEVER, DURING THE NIGHT SHE HAS BEEN NONCOMPLIANT. I OFFERED PT WARM COMPRESSES AND EDUCATED HER ON THEIR IMPORTANCE AND ENCOURAGED HER TO USE. EACH TIME THAT I ASKED IF PT HAD USED THE COMPRESSES SHE STATED THAT SHE HAD NOT, AND SHE ALSO DID NOT KEEP AREA OPEN TO AIR PER DR. CAMPBELL INSTRUCTIONS. PT REPORTS THAT HER PAIN ISN'T BAD, AND HAS BEEN RATHER STOIC. SHE DENIES NEED FOR PAIN MEDICATION. WITH MY ASSESSMENT SHE APPEARS UNCOMFORTABLE WITH MOVEMENT, SITTING AND STANDING. IV ABX CONTINUED ORDERED. NPO SINCE MIDNIGHT FOR POSSIBLE UPCOMING PROCEDURE. CHLORHEXIDINE TOPICAL GIVEN PER ORDERS WITH DICK BOTTLES FOR USE DURING BATHROOM TRIPS. VITALS STABLE. NO ACUTE CHANGES OVERNIGHT. BED IN LOWEST POSITION. CALL LIGHT WITHIN REACH.
--- NOTE | 2019-08-25 16:39 | NUR ---
PT IS A/OX3, COOPERATIVE, APPEARS TO HAVE A FLAT AFFECT, THE PT AT TIMES IS SLOW TO RESPOND TO QUESTIONS, THE PT IS UP WITH MINIMAL ASSIST TO THE BATHROOM, THE PT HAS BEEN CLEANSING HER DICK AREA INSTRUCTED, AND AT TIME APPLIES THE ORDERED WARM COMPRESS, THE PT WAS MEDICATED FOR PAIN 09/29 AFTER HER SHOWER TODAY AND X2 MORE AFTER THAT, PT WAS ABLE TO TAKE A NAP THIS AFTERNOON , HOWEVER, WOKE UP AND VOMITED 100 CC EMISIS, PT WAS MEDICATED FOR N/V X1, PT APPEARS TO BE BREATHING EASILY AT REST, PT IS TO BE NPO AFTER [place] TONIGHT FOR PLANNED I&D TOMORROW, CALL LIGHT IN REACH, WILL CONTINUE TO MONITOR AND ASSESS FOR CHANGES
[2019-08-26 02:53] LABS: Anion Gap 3 mmol/L (6-16); Blood Urea Nitrogen 6 mg/dL (8-24); Bun/Creatinine Ratio 9.5 (12.0-20.0); CO2, Blood 33 mmol/L (21-32); Calcium, Blood 8.2 mg/dL (8.5-10.1); Chloride, Blood 104 mmol/L (98-108); Creatinine, Blood 0.63 mg/dL (0.40-1.00); Glomerular Filtration Rate >60 (60-); Glucose, Blood 191 mg/dL (70-99); Potassium, Blood 3.1 mmol/L (3.5-5.5); Sodium, Blood 140 mmol/L (136-145)
--- NOTE | 2019-08-26 05:29 | NUR ---
SHIFT SUMMARY PT HAS RESTED MOST OF THE NIGHT. SHE REPORTS THAT THE SHOWER SHE HAD YESTERDAY HAS HELPED IMPROVE THE ABCESS, AND STATES A LOT OF DRANIAGE SINCE THAT TIME. PT MEDICATED FOR PAIN X1 THIS SHIFT WITH AFFECT. PT HAS DENIED NEEDS MOST TIMES WHEN ASKED. PLAN IS FOR I&D TODAY, AND POSS DC. SHE HAS BEEN NPO SINCE MIDNIGHT. VITALS STABLE. BED IN LOWEST POSITION, CALL LIGHT WITHIN REACH.
[2019-08-26 06:07] LABS: HIV SCREEN 4TH GENERATION WRFX Non Reactive (Non Reactive)
--- NOTE | 2019-08-26 14:09 | NUR ---
PT TRANSFERED TO [facility] VIA GURNEY FROM [facility]. History, Chart, Medications and Allergies reviewed before start of procedure. Lungs clear T/O to Auscultation. Patient confirms NPO status and agrees with scheduled surgery. PT UNABLE TO VOID SO SERUM CGB ORDERED. LAB HAS BEEN HERE AND DRAWN, WAITING ON RESULTS.
--- NOTE | 2019-08-26 17:17 | NUR ---
SHIFT SUMMARY PT A/O, INDEPENDENT IN THE ROOM THIS SHIFT. PT DOWN TO OR FOR IND THIS AFTERNOON. PT BACK TO ROOM, A/O. PT STATES SHE IS COMFORTABLE WITH NO ADDITIONAL NEEDS. ANTICIPATES ONE MORE NIGHT TO MONITOR PT AFTER PROCEDURE.
--- NOTE | 2019-08-27 04:50 | NUR ---
SHIFT SUMMARY: VSS. AFEB. AAOX4. DENIES PAIN. USING ICE PACK INTERMITTENTLY OVER DICK PAD ON LABIA. ABSCESS SITES ON SCALP ARE WITHOUT ERYTHEMA OR DRAINAGE. BOTH SCABBED OVER. DISCUSSED HS INSULIN ORDER CHANGES. PT DEMONSTRATED DIALING IN INSULIN DOSE AND SELF ADMINISTRATION. NEEDED SOME CUEING. ASKING QUESTIONS. CBG'S 225 AND 162 TONIGHT. NO ACUTE CHANGES. WILL CONT TO MONITOR.
[2019-08-27] MEDS ORDERED: ACET325 PO (12:42)
[2019-08-27] MEDS ORDERED: BASAGLAR K100 UNIT/1 SC (12:42)
[2019-08-27] MEDS ORDERED: AMOCLA875 PO (12:42)
[2019-08-27] MEDS ORDERED: HUMALOG KW100 UNIT/1 SC (12:43)
--- NOTE | 2019-08-27 14:02 | NUR ---
DISCHARGE NOTE PT ALERT AND ORIENTED, INDEPENDENT IN THE ROOM THIS SHIFT. PT PROVIDED DISCHARRGE AND MEDICAION INSTRUCTIONS. PT FAMILY MEMBER AT BEDSIDE TO PROVIDE TRANSPORTATION HOME. PT STATES NO ADDITIONAL NEEDS A THIS TIME. PT TO VEHICLE INDEPENDENTLY, REFUSED USE OF WHEELCHAIR.
== END 2019-08-27 14:04 | disposition home or self-care (01) | DRG 853 ==
LOC: ER 20:32 → ICUE 08-21 00:36 → MEDS 08-21 00:36 → ICUW 08-21 00:36 → ICUE 08-21 20:02 → MEDS 08-24 13:47
PROVIDERS: Emergency Medicine; Hospitalist; Obstetrics & Gynecology; Pharmacist; Student in an Organized Health Care Education/Training Program; ADMIT Internal Medicine
PROC: 0U9MXZX Drainage of Vulva, External Approach, Diagnostic (ICD-10-PCS; principal; 2019-08-26 14:30)
DX: A41.9 Sepsis, unspecified organism (principal); G92 Toxic encephalopathy; E11.11 Type 2 diabetes mellitus with ketoacidosis with coma; N76.4 Abscess of vulva; E87.2 Acidosis; E87.6 Hypokalemia; Z20.828 Contact with and (suspected) exposure to other viral communicable diseases
CPT/HCPCS: 36415; 74177; 76857; 80048; 80053; 80076; 80202; 81001; 81025; 82010; 82803; 82947; 83036; 83605; 83690; 83735; 84100; 84703; 85025; 87040; 87070; 87075; 87077; 87086; 87147; 87186; 87205; 87389; 87480; 87491; 87510; 87591; 87660; 96361; 96365; 96366; 96367; 96375; 99283; 99285-25; A9270; A9270-GY; C1751; J0295; J1100; J1170; J1650; J1815; J1885; J2185; J2250; J2370; J2405; J2543; J2704; J2765; J3010; J3370; J3480; J7030; J7040; J7050; J7060; J7120; Q9967; U0002

== ENCOUNTER → 2019-10-17 | Outpatient (CLI) | payer OTHER ==
[~2019-10-17] MED LIST changes: +ACET325 PO; +AMOCLA875 PO; +BASAGLAR K100 UNIT/1 SC; +HUMALOG KW100 UNIT/1 SC; +Mupirocin22 GM TOP
[2019-10-17 16:18] LABS: Source, Urine Clean Catch
[2019-10-17 17:59] LABS: BASOPHILS ABSOLUTE AUTO 0.12 K/mm3 (0.00-0.23); BASOPHILS PERCENT AUTO 1 % (0-2); EOSINOPHILS ABSOLUTE AUTO 0.21 K/mm3 (0.00-0.68); EOSINOPHILS PERCENT AUTO 3 % (0-6); Hematocrit 42.5 % (33.0-51.0); Hemoglobin 13.4 g/dL (11.5-16.0); IMMATURE GRAN ABSOLUTE AUTO 0.03 K/mm3 (0.00-0.10); IMMATURE GRAN PERCENT AUTO 0 % (0-1); LYMPHOCYTES ABSOLUTE AUTO 2.31 K/mm3 (0.84-5.20); LYMPHOCYTES PERCENT AUTO 27 % (21-46); MONOCYTES ABSOLUTE AUTO 0.47 K/mm3 (0.16-1.47); MONOCYTES PERCENT AUTO 6 % (4-13); Mean Corpuscular HGB Conc 31.5 g/dL (31.5-36.5); Mean Corpuscular Volume 95 fL (80-100); Mean Platelet Volume 11.8 fL (9.1-12.4); NEUTROPHILS ABSOLUTE AUTO 5.32 K/mm3 (1.96-9.15); NEUTROPHILS PERCENT AUTO 63 % (41-73); Platelet Count 242 K/mm3 (150-400); RDW Coefficient Variation 11.7 % (11.7-14.2); RDW Standard Deviation 40.9 fL (35.1-46.3); Red Blood Cell Count 4.46 M/mm3 (3.80-5.20); White Blood Cell Count 8.46 K/mm3 (4.00-11.30)
[2019-10-17 18:13] LABS: Alanine Aminotransfer (ALT/SGP 38 U/L (12-78); Albumin, Blood 3.8 g/dL (3.4-5.0); Albumin/Globulin Ratio 0.6 (0.8-1.8); Alk Phos 102 U/L (50-136); Anion Gap 5 mmol/L (6-16); Aspartate Aminotrans (AST/SGOT 5 U/L (12-37); Bilirubin, Total 0.2 mg/dL (0.1-1.0); Blood Urea Nitrogen 10 mg/dL (8-24); CO2, Blood 28 mmol/L (21-32); Calcium, Blood 8.4 mg/dL (8.5-10.1); Chloride, Blood 107 mmol/L (98-108); Creatinine, Blood 0.42 mg/dL (0.40-1.00); Globulin, Blood 5.9 g/dL (2.2-4.0); Glomerular Filtration Rate >60 (60-); Glucose, Blood 92 mg/dL (70-99); Potassium, Blood 3.8 mmol/L (3.5-5.5); Sodium, Blood 140 mmol/L (136-145); Total Protein, Blood 9.7 g/dL (6.4-8.2)
[2019-10-17 18:29] LABS: CHOL/HDL RATIO 2.7; Cholesterol 168 mg/dL (50-200); HDL Cholesterol 62 mg/dL (>39); LDL/HDL RATIO 1.4; Low Density Lipoprotein Chol 89 mg/dL (0-110); Triglycerides 83 mg/dL (30-140); Very Low Density Lipoprot Chol 16 mg/dL (6-28)
[2019-10-17 20:57] LABS: Appearance, Urine Clear (Clear); Bilirubin, Urine Neg (Neg); Blood, Urine Neg (Neg); Color, Urine Yellow (P-Yellow); Glucose Qualitative, Urine Neg (Neg); Ketones, Urine Neg (Neg); Leukocyte Esterase, Urine Neg (Neg); Nitrite, Urine Neg (Neg); Protein, Urine Neg (Neg); Urobilinogen, Urine NORM (Normal); pH, Urine 6.5 (5.0-8.0)
== END | disposition home or self-care (01) ==
LOC: LAB 09:30 → LAB SHORT 09:30
PROVIDERS: Nurse Practitioner Family
DX: Z11.59 Encounter for screening for other viral diseases (principal); E13.9 Other specified diabetes mellitus without complications
CPT/HCPCS: 80053; 80061; 81003; 82043; 83036; 85025; 86803